=== PATIENT | male | born 1980 | race Caucasian/White ===

== ENCOUNTER 2017-07-16 17:32 | Emergency (ER) | END 2017-07-16 20:10 | disposition home or self-care (01) | DX: S20.219A Contusion of unspecified front wall of thorax, initial encounter (principal); S43.402A Unspecified sprain of left shoulder joint, initial encounter; R07.9 Chest pain, unspecified; W18.39XA Other fall on same level, initial encounter; Y92.9 Unspecified place or not applicable | CPT/HCPCS: 71010; 73030; 93005; Z7502; Z7610 ==

== ENCOUNTER 2018-06-26 14:33 | Emergency (ER) | END 2018-06-26 17:42 | disposition home or self-care (01) ==